=== PATIENT | female | born 1975 | race Caucasian/White ===

== ENCOUNTER 2016-07-23 15:42 | Emergency (ER) | payer OTHER ==
[2016-07-23 15:45] VITALS: BP 98/65; PULSE 97; TEMP 98.6; BMI 32.3
[2016-07-23] MEDS ORDERED: ALBUTEROL SO4 2.5/IPRATROPIUM 0.5 INH SOL 3 ML VIAL.NEB. NEB ONE ×3 (16:04→16:15)
--- NOTE | 2016-07-23 16:10 | PDOC ---
History of Present Illness - General Chief Complaint: Cold Symptoms Stated Complaint: COLD SYMPTOMS Time Seen by Provider: 07/23/16 15:52 History Source: Patient Exam Limitations: No Limitations - History of Present Illness Initial Comments: 07/23/16 16:08 41 yr female with cough wheezing. Pt states she was treated for bronchitis with levaquin 3 weeks ago felt better, now states cough has returned and is worse. no shortness of breath c/o chest tight with coughing. no history of asthma. Severity: reports: moderate Possible Cause: Yes: occasional episodes Past History - Past Medical History Allergies/Adverse Reactions: Allergies Allergy/AdvReac Type Severity Reaction Status Date / Time No Known Allergies Allergy Verified 07/23/16 15:45 Home Medications: Ambulatory Orders Albuterol Sulfate Inhaler - [Ventolin HFA Inhaler -] 1 - 2 inh PO Q4H #1 inhaler 07/23/16 Benzonatate [Tessalon Pearls -] 200 mg PO TID PRN #42 cap 07/23/16 Prednisone [Deltasone -] 20 mg PO BID #10 tablet 07/23/16 Other medical history: NONE - Surgical History Cholecystectomy: Yes - Psycho/Social/Smoking Cessation Hx Anxiety: No Suicidal Ideation: No Smoking History: Never smoked Information on smoking cessation initiated: No Hx Alcohol Use: No Drug/Substance Use Hx: No Substance Use Type: None Respiratory Specific PMHX - Complaint Specific PMHX Bronchitis: Yes Review of Systems - Review of Systems Able to Perform ROS?: Yes Is the patient limited Arabic proficient: No Constitutional: Yes: Fever (last night ). No: Symptoms Reported Respiratory: Yes: See HPI *Physical Exam - Vital Signs Last Vital Signs Temp Pulse Resp BP Pulse Ox 98.6 F 97 H 22 98/65 97 07/23/16 15:43 07/23/16 15:43 07/23/16 15:43 07/23/16 15:43 07/23/16 15:43 - Physical Exam General Appearance: Yes: Nourished, Appropriately Dressed HEENT: positive: EOMI, HECTOR, Normal ENT Inspection, TMs Normal, Pharynx Normal Neck: positive: Supple. negative: Tender Respiratory/Chest: positive: Chest Tender (anterior tender to touch ), Decreased Breath Sounds, Wheezing Cardiovascular: positive: Regular Rhythm, Regular Rate Gastrointestinal/Abdominal: positive: Normal Bowel Sounds, Soft Musculoskeletal: positive: Normal Inspection Extremity: positive: Normal Capillary Refill, Normal Inspection, Normal Range of Motion Integumentary: positive: Normal Color, Dry, Warm Neurologic: positive: Fully Oriented, Alert, Normal Mood/Affect, Normal Response , Motor Strength 08/18 ED Treatment Course - ADDITIONAL ORDERS Additional order review: Laboratory Results 07/23/16 16:00 Urine HCG, Qual Negative - RADIOLOGY Radiograph Interpretation: 07/23/16 18:11 Name: Rigoberto Denise : 1975 Sex: F Study Date & Time: 07/23/201616:40:33 Description: CHEST PA & LAT Directional Survey Drafter: ([email or web address]) Begin of Report Content Referring Physician: Marleny Grullon Patient Name: Renate Franklin THIS IS A PRELIMINARY REPORT FROM IMAGING BODY FITTER EXAM: Chest x-ray IMAGES: 4 DATE OF EXAM: 2016-07-23 16:40:33.0 REASON FOR EXAM: Rule out pneumonia COMPARISON: None. FINDINGS: No acute cardiopulmonary disease. No focal pneumonia. THIS DOCUMENT HAS BEEN ELECTRONICALLY SIGNED Shawn Ratliff MD 07/23/2016 18:06 ROGERS Mike Please call Imaging Management Psychologist [phone]) with questions. End of Report Content Medical Decision Making - Medical Decision Making 07/23/16 16:09 cc: cough, wheezing chest pain with cough will r/o duoneb, CXR 07/23/16 18:10 pt improved no wheezing feels much better CXR read by imaging senior insight manager international negative will dc home with tessalon, prednisoen and albuterol inhaler discussed plan pt agrees all questions asked and answered *DC/Admit/Observation/Transfer Diagnosis at time of Disposition: Bronchitis - Discharge Dispostion Disposition: HOME Condition at time of disposition: Improved - Prescriptions Prescriptions: Prednisone [Deltasone -] 20 mg PO BID #10 tablet Benzonatate [Tessalon Pearls -] 200 mg PO TID PRN #42 cap PRN Reason: Cough Albuterol Sulfate Inhaler - [Ventolin HFA Inhaler -] 1 - 2 inh PO Q4H #1 inhaler - Patient Instructions Additional Instructions: drink pleanty of fluids take the next dose of prednisone tomorrow morning use the inhaler every 4hrs take tessalon perles for cough return if any worsening symptoms
[2016-07-23] MEDS ORDERED: predniSONE 20 MG TABLET (UD) PO ONE (16:11)
[2016-07-23] MEDS ORDERED: predniSONE 20 MG TABLET (UD) ONE (16:19)
[2016-07-23] MEDS ORDERED: IBUPROFEN 600 MG TABLET (FP) PO ONE ×2 (18:07→18:08)
== END 2016-07-23 18:19 | disposition home or self-care (01) ==
LOC: JERFT 15:42
PROC: 3E0F7GC Introduction of Other Therapeutic Substance into Respiratory Tract, Via Natural or Artificial Opening (ICD-10-PCS; principal; 2016-07-23)
PROC: 3E0F7GC Introduction of Other Therapeutic Substance into Respiratory Tract, Via Natural or Artificial Opening (ICD-10-PCS; 2016-07-23)
DX: J20.9 Acute bronchitis, unspecified (principal)
CPT/HCPCS: 71020-TC; 84703; 94640; 99281-25

== ENCOUNTER 2020-07-04 17:43 | Emergency (ER) | payer OTHER ==
[2020-07-04 17:57] VITALS: TEMP 98; BMI 29.0
[2020-07-04] MEDS ORDERED: ACETAMINOPHEN 1000 MG/100 ML VIAL (NON FORMULARY) IVPB ONE (18:06)
[2020-07-04] MEDS ORDERED: ACETAMINOPHEN INJECTION 100 ML IVPB ONE (18:27)
[2020-07-04 19:01] LABS: BASO % 0.4 % (0-2.0); EOS % 1.1 % (0-4.5); HEMATOCRIT 39.3 % (32.4-45.2); HEMOGLOBIN 12.9 GM/dL (10.7-15.3); LYMPH % 27.8 % (8-40); MCHC 32.9 g/dl (32.0-36.0); MEAN CELL VOLUME 82.1 fl (80-96); MEAN PLT VOLUME 8.2 fl (7.5-11.1); MONO % 7.3 % (3.8-10.2); NEUT % 63.4 % (42.8-82.8); PLATELET COUNT 314 K/MM3 (134-434); RBC 4.79 M/mm3 (3.60-5.2); RDW 13.4 % (11.6-15.6); WHITE BLOOD COUNT 11.3 K/mm3 (4.0-10.0)
[2020-07-04 19:06] LABS: HCG,QUALITATIVE URINE Negative
[2020-07-04 19:07] LABS: EPI CELLS 4 /uL (0-25.1); HYALINE CASTS 1 /uL (0-3.1); URINE APPEARANCE CLOUDY; URINE BACTERIA >9,000 /uL (0-1359); URINE BILIRUBIN 1+ (NEGATIVE); URINE COLOR ORANGE; URINE GLUCOSE (UA) NEGATIVE (NEGATIVE); URINE KETONE NEGATIVE (NEGATIVE); URINE LEUK ESTERASE 3+ (NEGATIVE); URINE NITRITE POSITIVE (NEGATIVE); URINE PROTEIN 2+ (NEGATIVE); URINE RBC 79 /uL (0-23.9); URINE WBC 2413 /uL (0-25.8)
[2020-07-04 19:09] LABS: POTASSIUM 4.4 mmol/L (3.5-5.1)
[2020-07-04 19:12] LABS: BLOOD UREA NITROGEN 19.6 mg/dL (7-18); CALCIUM 9.4 mg/dL (8.5-10.1)
[2020-07-04 19:15] LABS: CREATININE 0.8 mg/dL (0.55-1.3)
[2020-07-04 19:16] LABS: BILIRUBIN,TOTAL 0.5 mg/dL (0.2-1); TOT PROT 7.5 g/dl (6.4-8.2)
[2020-07-04 20:44] VITALS: BP 122/86; PULSE 82
== END 2020-07-04 20:46 | disposition home or self-care (01) ==
LOC: JER 17:43
PROC: 3E0333Z Introduction of Anti-inflammatory into Peripheral Vein, Percutaneous Approach (ICD-10-PCS; principal; 2020-07-04)
DX: N30.01 Acute cystitis with hematuria (principal)
CPT/HCPCS: 36415; 74176-TC; 80053; 81003; 84703; 85025; 87086; 87186; 99284-25; J0131

== ENCOUNTER 2021-08-07 15:53 | Emergency (ER) | payer OTHER ==
[2021-08-07 16:07] VITALS: BP 118/58; PULSE 105; BMI 30.7
[2021-08-07] MEDS ORDERED: ACETAMINOPHEN 500 MG TABLET (FP) ONE (16:37)
[2021-08-07] MEDS ORDERED: ACETAMINOPHEN 500 MG TABLET (FP) PO ONE (16:37)
[2021-08-07] MEDS ORDERED: IBUPROFEN 600 MG TABLET (FP) PO ONE ×2 (17:38)
[2021-08-07 17:47] VITALS: TEMP 100.2
[2021-08-08 20:07] LABS: SARS-CoV-2 NAA Not Detected (Not Detected)
== END 2021-08-07 18:09 | disposition home or self-care (01) ==
LOC: JER 15:53
DX: J09.X2 Influenza due to identified novel influenza A virus with other respiratory manifestations (principal)
CPT/HCPCS: 87804; 99283-25; C9803-CS; U0003; U0005

== ENCOUNTER 2023-03-10 14:43 | Emergency (ER) | payer OTHER ==
[2023-03-10 14:52] VITALS: BP 135/86; PULSE 72; RESP 18; TEMP 98.2; BMI 28.2
[2023-03-10] MEDS ORDERED: LIDOCAINE 4% PATCH TP ONE ×2 (15:42→15:44)
[2023-03-10] MEDS ORDERED: KETOROLAC TROMETHAMINE 30 MG/1 ML VIAL IM ONE (15:42)
[2023-03-10] MEDS ORDERED: KETOROLAC TROMETHAMINE 30 MG/1 ML VIAL ONE (15:44)
== END 2023-03-10 16:53 | disposition home or self-care (01) ==
LOC: JERFT 14:43
PROC: 3E0233Z Introduction of Anti-inflammatory into Muscle, Percutaneous Approach (ICD-10-PCS; principal; 2023-03-10)
DX: M54.9 Dorsalgia, unspecified (principal); M54.2 Cervicalgia; V49.50XA Passenger injured in collision with unspecified motor vehicles in traffic accident, initial encounter; Y93.I9 Activity, other involving external motion; Y92.9 Unspecified place or not applicable
CPT/HCPCS: 99284-25

== ENCOUNTER 2023-04-09 02:01 | Emergency (ER) | payer OTHER ==
[2023-04-09 02:10] VITALS: BP 141/75; PULSE 76; RESP 20; TEMP 98.5; BMI 29.0
[2023-04-09] MEDS ORDERED: DEXAMETHASONE 4 MG TABLET (FP) PO ONE (02:50)
[2023-04-09] MEDS: ALBUTEROL SO4 2.5/IPRATROPIUM 0.5 INH SOL 3 ML VIAL.NEB. NEB SCH ×4 (03:06→03:46)
[2023-04-09] MEDS ORDERED: DEXAMETHASONE 4 MG TABLET (FP) ONE (03:09)
[2023-04-09] MEDS ORDERED: AZITHROMYCIN 500 MG TABLET PO ONE (03:41)
[2023-04-09] MEDS ORDERED: AZITHROMYCIN 500 MG TABLET ONE (03:47)
== END 2023-04-09 04:14 | disposition home or self-care (01) ==
LOC: JER 02:01
PROC: 3E0F7GC Introduction of Other Therapeutic Substance into Respiratory Tract, Via Natural or Artificial Opening (ICD-10-PCS; principal; 2023-04-09)
DX: R05.9 Cough, unspecified (principal); R06.2 Wheezing; J18.9 Pneumonia, unspecified organism; Z20.822 Contact with and (suspected) exposure to COVID-19
CPT/HCPCS: 0241U-QW; 71046-TC-FY; 99284-25

== ENCOUNTER 2023-04-12 22:04 | Emergency (ER) | payer OTHER ==
[2023-04-12 22:10] VITALS: BP 128/83; PULSE 77; RESP 20; TEMP 98; BMI 29.0
== END 2023-04-12 23:19 | disposition home or self-care (01) ==
LOC: JERFT 22:04
DX: J18.9 Pneumonia, unspecified organism (principal); R05.9 Cough, unspecified; R07.81 Pleurodynia; Z20.822 Contact with and (suspected) exposure to COVID-19
CPT/HCPCS: 0241U-QW; 71046-TC-FY; 99284-25